=== PATIENT | male | born 1955 | race Caucasian/White ===

== ENCOUNTER → 2024-03-26 11:41 | Outpatient (REF) | payer OTHER, SELFPAY | LOC: HWRAD 11:41 | PROVIDERS: ATTENDING PHYSICIAN Urology; FAMILY PHYSICIAN Family Medicine | DX: R31.0 Gross hematuria (principal) | CPT/HCPCS: 74178; Q9967 ==

== ENCOUNTER 2024-04-08 13:17 | Emergency (ER) | payer OTHER, SELFPAY ==
[2024-04-08 13:21] VITALS: BP 182/118
[2024-04-08 14:02] VITALS: BMI 35.4
[2024-04-08] MEDS: DECADRON 10 MG IV (14:36)
[2024-04-08] MEDS: TORADOL 15 MG IV (14:36)
[2024-04-08 14:40] LABS: % Basophils 0.5 % (0-2); % Eosinophils 0.5 % (0-6); % Immature Granulocytes 0.4 % (0-0.5); % Monocytes 9.6 % (1.7-9.3); Absolute Basophils 0.1 10^3/uL (0-0.2); Absolute Eosinophils 0.1 10^3/uL (0-0.7); Absolute Immature Granulocytes 0.1 10^3/uL (0-0.05); Absolute Monocytes 1.4 10^3/uL (0.1-0.6); Absolute Neutrophils 12.2 10^3/uL (1.4-6.5); Hematocrit 51.2 % (39.0-52.0); Hemoglobin 17.4 g/dL (13.0-18.0); Mean Corpuscular Hgb 30.6 pg (27.0-31.0); Mean Platelet Volume 9.5 fL (7.4-10.4); Nucleated Red Blood Cells % 0 % (-); Platelet Count 221 10^3/uL (130-400); Red Blood Cell Count 5.69 10^6/uL (4.70-6.10); White Blood Cell Count 14.9 10^3/uL (4.8-10.8)
--- NOTE | 2024-04-08 14:48 | ED.GENMED ---
History of Present Illness
<Fidel Wallis PA-C - Last Filed: 04/09/24 10:09>
General
Chief Complaint: Throat Problem
Time Seen by Provider: 04/08/24 14:20
History of Present Illness
History of Present Illness:
69-year-old male presents to the emergency department for evaluation of sore throat and left ear pain over the past 2 days. Was seen in urgent care today and was noted to have a visible peritonsillar abscess thus sent to the ED for evaluation.
Significant dysphagia and dysphonia. No nausea or vomiting. Not on blood thinners.
Review of Systems
<Fidel Wallis PA-C - Last Filed: 04/09/24 10:09>
Review of Systems
Allergies reviewed?: Yes
All Other Systems: ROS reviewed and negative except as documented in HPI and ROS
Phy Exam
<Fidel Wallis PA-C - Last Filed: 04/09/24 10:09>
Physical Exam
Physical Exam:
GEN: Well appearing, NAD, WDWN
HEENT: Oral mucosa moist, no scleral icterus, large left peritonsillar abscess with significant uvular deviation and obscuring of the oropharynx, severe superior cervical adenopathy
Cardiac: Tachycardic, regular
Lung: No respiratory distress, no tachypnea
MSK: No gross deformity or injuries
Skin: Good color, no pallor or jaundice, no rashes
Neuro: AO x3, moves all extremities freely
Psych: Calm, cooperative
Course
<Fidel Wallis PA-C - Last Filed: 04/09/24 10:09>
Orders/Labs/Results
Orders:
Orders
04/08/24 14:23
CT Neck With Iv Contrast Urgent
Comment:
Reason For Exam: L GUIDANCE CONSULTANT
Dexamethasone Sod Phosphate [Decadron] 10 mg IV NOW STA
Ketorolac [Toradol] 15 mg IV NOW STA
04/08/24 14:29
Complete Blood Count/With Diff Urgent
Comprehensive Metabolic Panel Urgent
04/08/24 15:47
Ampicillin/Sulbactam 3 G [Unasyn] 3 gm 0.9% Sodium Chloride 100 ml [Nss] 100 ml IV NOW
Abnormal Lab Results
04/08/24
14:29
WBC 14.9 H 10^3/uL
(4.8-10.8)
Abs Immat Gran (auto) 0.1 H 10^3/uL
(0-0.05)
Absolute Neuts (auto) 12.2 H 10^3/uL
(1.4-6.5)
Absolute Lymphs (auto) 1.0 L 10^3/uL
(1.2-3.4)
Absolute Monos (auto) 1.4 H 10^3/uL
(0.1-0.6)
Neutrophils % 82.0 H %
(42.2-75.2)
Lymphocytes % 7.0 L %
(20.5-51.1)
Monocytes % 9.6 H %
(1.7-9.3)
Glucose 117 H mg/dl
(70-99)
Albumin 5.1 H g/dl
(3.5-5.0)
04/08/24 14:29
04/08/24 14:29
Vital Signs
Initial and Last Documented VS:
Initial Vital Signs
Temp Pulse Resp BP Pulse Ox
100.1 F 120 18 182/118 99
04/08/24 13:21 04/08/24 13:21 04/08/24 13:21 04/08/24 13:21 04/08/24 13:21
Last Documented Vital Signs
Temp Pulse Resp BP Pulse Ox
99.2 F 107 18 167/100 99
04/08/24 17:54 04/08/24 17:54 04/08/24 13:21 04/08/24 17:54 04/08/24 13:21
<Sharon Khan NP - Last Filed: 04/08/24 22:52>
Orders/Labs/Results
Orders:
Orders
04/08/24 14:23
CT Neck With Iv Contrast Urgent
Comment:
Reason For Exam: L GUIDANCE CONSULTANT
Dexamethasone Sod Phosphate [Decadron] 10 mg IV NOW STA
Ketorolac [Toradol] 15 mg IV NOW STA
04/08/24 14:29
Complete Blood Count/With Diff Urgent
Comprehensive Metabolic Panel Urgent
04/08/24 15:47
Ampicillin/Sulbactam 3 G [Unasyn] 3 gm 0.9% Sodium Chloride 100 ml [Nss] 100 ml IV NOW
Abnormal Lab Results
04/08/24
14:29
WBC 14.9 H 10^3/uL
(4.8-10.8)
Abs Immat Gran (auto) 0.1 H 10^3/uL
(0-0.05)
Absolute Neuts (auto) 12.2 H 10^3/uL
(1.4-6.5)
Absolute Lymphs (auto) 1.0 L 10^3/uL
(1.2-3.4)
Absolute Monos (auto) 1.4 H 10^3/uL
(0.1-0.6)
Neutrophils % 82.0 H %
(42.2-75.2)
Lymphocytes % 7.0 L %
(20.5-51.1)
Monocytes % 9.6 H %
(1.7-9.3)
Glucose 117 H mg/dl
(70-99)
Albumin 5.1 H g/dl
(3.5-5.0)
04/08/24 14:29
04/08/24 14:29
Vital Signs
Initial and Last Documented VS:
Initial Vital Signs
Temp Pulse Resp BP Pulse Ox
100.1 F 120 18 182/118 99
04/08/24 13:21 04/08/24 13:21 04/08/24 13:21 04/08/24 13:21 04/08/24 13:21
Last Documented Vital Signs
Temp Pulse Resp BP Pulse Ox
99.2 F 107 18 167/100 99
04/08/24 17:54 04/08/24 17:54 04/08/24 13:21 04/08/24 17:54 04/08/24 13:21
<Sharon Khan NP - Last Filed: 04/08/24 22:52>
*Critical Care Note
Total Time (30-74mins, 75-104mins- exclusive of procedures): Not Applicable
<Sharon Khan NP - Last Filed: 04/08/24 22:52>
Update Note
Update Note:
CT of neck confirms left peritonsilar abscess. Case discussed with Dr. Boyer who examined patient bedside. Dr. Boyer successfully drained abscess, scoped airway bedside. Ok for discharge. Will place on Augmentin 875mg bid and prednisone
taper. He will follow up in office with Dr. Boyer. Given intructions on s/s to return to ED and he is agreeable to plan.
ED Attending Note
<Fidel Wallis PA-C - Last Filed: 04/09/24 10:09>
-
Portions of this chart may have been created with voice recognition software.� Occasional wrong word or��sound alike� substitutions may have occurred due to the inherent limitations of voice recognition software.
Discharge Plan
Departure
Patient Disposition: Home (Routine Discharge)
Date of Disposition: 04/08/24
Time of Disposition: 17:52
Patient with high blood pressure during this ER visit?: No
Condition: Good
Covid-19: Not Applicable
Discharge Problem:
Abscess, peritonsillar
Instructions: Peritonsillar Abscess, Adult (DC)
Prescriptions:
New
amoxicillin-pot clavulanate 875-125 mg tablet
1 tab PO BID Qty: 20 0RF
prednisone 10 mg Tablet
See Rx Instructions .ROUTE .COMPLEX Qty: 30 0RF
Rx Instructions:
Take By Mouth:
40 mg daily x3 days, 30 mg daily x3 days,
20 mg daily x3 days, 10 mg daily x3 days.
hydrocodone-acetaminophen 5-325 mg tablet
1 tab PO Q4HPRN PRN (Reason: pain) Qty: 10 0RF
No Action
lisinopril 10 MG tablet
10 mg PO DAILY
finasteride 5 MG tablet
5 mg PO DAILY
multivitamin with folic acid [Tab-A-Deneen] 1 TABLET tablet
1 tab PO DAILY
Lovaza
1,000 mg PO DAILY
Referrals:
Gee Plasencia MD [Family Provider] -
Jone Boyer MD [Active] - Call in 1-3 days for appt
Activity Restrictions/Additional Instructions:
Return to the emergency department immediately for any difficulty breathing or swallowing.
Interventions
Interventions:
*Risk Screen - Suicide Last Done: 04/08/24 13:21
*General Assessment Last Done: 04/08/24 13:21
*Neglect/Abuse Screening Last Done: 04/08/24 13:21
ED- Fall Risk Assessment Last Done: 04/08/24 14:03
*ED COVID-19 Vaccine History Last Done: 04/08/24 13:21
*Nursing Disposition Last Done: 04/08/24 18:12
ED-EENT Assessment Last Done: 04/08/24 14:04
ED- Pulmonary Assessment Last Done: 04/08/24 14:04
Discharge Date and Time
Discharge Date/Time: 04/08/24 18:13
Print Language: ROMANSH
[2024-04-08 15:03] LABS: ALT (SGPT) 39 U/L (0-50); AST (SGOT) 29 U/L (17-59); Albumin 5.1 g/dl (3.5-5.0); Alkaline Phosphatase 56 U/L (38-126); Blood Urea Nitrogen 13 mg/dl (9-20); Calcium 9.8 mg/dl (8.4-10.2); Carbon Dioxide 29 mmol/L (22-30); Chloride 99 mmol/L (98-107); Estimated Creatinine Clearance 99 ml/min; Glucose 117 mg/dl (70-99); Potassium 4.8 mmol/L (3.5-5.1); Sodium 136 mmol/L (135-145); Total Bilirubin 1.3 mg/dl (0.2-1.3); eGFR > 60.00
[2024-04-08] MEDS: UNASYN IV (16:30)
--- NOTE | 2024-04-08 17:51 | W.PN.ENT ---
Today's Communication
-
seen at bedside
Impression / Plan
-
left peritonsillar abscess incised and drained of moderate amount pus
OK for home with Augmentin or clindamycin and steroids
follow up in office in 2 weeks
Subjective Data
-
left peritonsillar abscess
? swelling of hypopharynx on CT
patient has sore throat on left side with pain radiating to left ear
Objective Data
-
Vital Signs
Temp Pulse Resp BP Pulse Ox
100.1 F 120 18 182/118 99
04/08/24 13:21 04/08/24 13:21 04/08/24 13:21 04/08/24 13:21 04/08/24 13:21
Lab Results
04/08/24 14:29
04/08/24 14:29
Calcium 9.8 mg/dl (8.4-10.2) 04/08/24 14:29
Total Bilirubin 1.3 mg/dl (0.2-1.3) 04/08/24 14:29
AST 29 U/L (17-59) 04/08/24 14:29
ALT 39 U/L (0-50) 04/08/24 14:29
Alkaline Phosphatase 56 U/L (38-126) 04/08/24 14:29
Physical Exam
-
left peritonsillar abscess with swelling
flexible laryngoscopy at bedside
no airway compromise
no hypopharyngeal swelling noted
Chest: Clear
Respiratory: Clear
Data Reviewed
-
Radiology Results: Report Reviewed and Image Reviewed
[2024-04-08 17:54] VITALS: BP 167/100
--- NOTE | 2024-04-08 18:17 | CON.MD ---
Consultation - Medical
-
Chief complaint: Left-sided sore throat with radiation to left ear
History of present illness: This patient is a 69-year-old gentleman with a 2-day history of sore throat that had progressed to the point that he was having difficulty swallowing foods although he could swallow liquids. He is not having any
difficulty breathing. He noted that his pain radiated to the left ear. He has not coughed up any blood. He has not had similar problems in the past. He does not have a history of diabetes and is not on blood thinning medications. The patient
had a CT scan of the neck which showed a left peritonsillar abscess and also showed what appeared to be swelling in the hypopharynx.
Past medical history:
Medical problems: Abscess left peritonsillar area, hypertension, prostate hypertrophy
Allergies: No known drug allergies
Home medications: Augmentin 1 tablet p.o. twice daily, finasteride 5 mg p.o. daily, acetaminophen and hydrocodone 1 tablet p.o. every 4 hours as needed pain, lisinopril 10 mg p.o. daily, Lovaza 1000 mg p.o. daily
Multivitamin with folic acid 1 p.o. daily
Hospitalizations: None
Family history: Asked and is noncontributory for this problem
Review of systems: Positive for dysphagia and left-sided throat pain radiating to the left ear, negative for respiratory distress, negative for change in voice, positive for mild dysphagia with difficulty swallowing foods
Physical examination:
Head: Atraumatic and normocephalic
Eyes: Extraocular movements are intact, pupils are equal and reactive to light
Nose: Septum deviated to the right side, no infection noted
Oral cavity/oropharynx: Airway okay but left peritonsillar swelling noted with redness and edema of the tonsil and lateral soft palate
Ears: Normal to examination
Neck: Supple without adenopathy
Cranial nerves: 2 through 12 are intact
Thyroid: Normal to examination
Salivary glands: Normal to examination: Voice: Normal tone and volume
Procedure: Flexible laryngoscopy performed at bedside
A flexible laryngoscopy was performed through the patient's left nose after topical lidocaine was used in the nose. The patient tolerated the procedure well. Vocal cord motion is normal and there is no swelling of the hypopharynx or larynx.
Airway looks good.
Procedure: Incision and drainage of left peritonsillar abscess
The left peritonsillar area was injected with 2% lidocaine with 1-100,000 epinephrine. After waiting a suitable amount of time and 11 blade was used to incise a hole into an abscess cavity. Purulent material was easily evacuated with the help of a
mosquito forcep which was inserted through the incision. A moderate amount of pus was evacuated. The patient tolerated this well.
Impression/plan: This patient presented with a left peritonsillar abscess with radiation of discomfort to his left ear. Hypopharynx and larynx, which were questionably swollen based on CT scan were evaluated with flexible endoscope and were noted
to be normal. The patient underwent incision and drainage of the abscess as detailed above. The patient tolerated this well. Minimal bleeding was encountered and a moderate amount of pus was evacuated until no more pus could be evacuated. I
spoke with the emergency room staff and the patient will go home and clindamycin and prednisone. He will follow-up in the office in a week or 2 or sooner if problems persist.
== END 2024-04-08 18:13 | disposition home or self-care (01) ==
LOC: EMR 13:17
PROVIDERS: Physician Assistant; EMERGENCY PHYSICIAN Emergency Medicine; FAMILY PHYSICIAN Family Medicine
DX: J36 Peritonsillar abscess (principal); I10 Essential (primary) hypertension; H92.02 Otalgia, left ear
CPT/HCPCS: 31575; 42700; 99285; 96374; 96375; 70491; 80053; 85025; Q9967